=== PATIENT | male | born 2000 ===

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

== ENCOUNTER 2018-01-17 14:52 | Emergency (ER) | payer MEDICAID ==
[2018-01-17 14:52] VITALS: BMI 22.2
[2018-01-17 15:01] VITALS: PULSE 72; RESP 18; TEMP 98.1; O2SAT 99
[2018-01-17 16:09] VITALS: BP 131/74
--- NOTE | 2018-01-17 16:36 | ED PDOC ---
Upper Extremity Pain/Injury Time Seen by Provider: 01/17/18 15:04 Chief Complaint (Nursing): Upper Extremity Problem/Injury Chief Complaint (Provider): Upper Extremity Problem/Injury History Per: Patient History/Exam Limitations: no limitations Onset/Duration Of Symptoms: Days, Persistent Current Symptoms Are (Timing): Still Present Additional Complaint(s): Eddi Lund is a 17 year old male with a past medical history of asthma, who is presenting to the ER with complaints of right hand pain to the fourth and fifth metacarpals, onset in September s/p laceration repair. Patient states that he was treated in this ED in September for a laceration repair, after which he was advised to follow up with a hand specialist. He states that due to insurance, he was unable to follow up with a specialist. Patient adds that he works at [employer] and uses his hands in a repetitive manner, which causes him more pain and a "locking sensation" in his hand. He denies any numbness, weakness, or decrease in range of motion. PMD: Boaz Ware Past Medical History Reviewed: Historical Data, Nursing Documentation, Vital Signs Vital Signs: Last Vital Signs Temp 98.1 F 01/17/18 14:58 Pulse 72 01/17/18 14:58 Resp 18 01/17/18 14:58 BP 131/74 01/17/18 16:08 Pulse Ox 99 01/17/18 14:58 - Medical History PMH: Asthma - Family History Family History: States: Unknown Family Hx - Social History Current smoker - smoking cessation education provided: Yes Drugs: Cannabis - Immunization History Hx Tetanus Toxoid Vaccination: No Hx Influenza Vaccination: No - Home Medications Home Medications: Ambulatory Orders Medication Instructions Recorded Albuterol HFA [Ventolin HFA 90 2 puff IH [id number] PRN 05/27/15 mcg/actuation (8 g)] Ibuprofen 600 mg PO Q6 #20 tab 05/27/15 Ibuprofen [Motrin Tab] 600 mg PO Q6 #20 tab 03/11/17 Cyclobenzaprine [Cyclobenzaprine 10 mg PO TID PRN #20 tab 07/29/17 HCl] Naproxen [Naprosyn] 500 mg PO BID #20 tab 07/29/17 Clindamycin [Cleocin] 300 mg PO TID #21 cap 10/15/17 Ibuprofen [Motrin] 600 mg PO QID PRN #30 tab 10/17/17 Meloxicam [Mobic] 15 mg PO DAILY #30 tab 01/17/18 - Allergies Allergies/Adverse Reactions: Allergies Allergy/AdvReac Type Severity Reaction Status Date / Time Penicillins Allergy RASH Verified 01/17/18 14:58 Review of Systems ROS Statement: Except As Marked, All Systems Reviewed And Found Negative Musculoskeletal: Positive for: Hand Pain. Negative for: Other (decrese in ROM) Neurological: Negative for: Weakness, Numbness Physical Exam - Reviewed Nursing Documentation Reviewed: Yes Vital Signs Reviewed: Yes - Physical Exam Comments: GENERAL APPEARANCE: Patient is awake, alert, oriented x 3, in no acute distress. SKIN: Warm, dry; (-) cyanosis. UPPER EXTREMITY: (+) healed scar in between 4 and fifth MCP, (-) swelling, (-) deformity, (-) tenderness, FROM. Distal sensation and cap refill normal. NEURO AND PSYCH: Mental status as above. - ECG O2 Sat by Pulse Oximetry: 99 (RA) Pulse Ox Interpretation: Normal Medical Decision Making Medical Decision Making: Time: 16:15 Previous medical record were reviewed by provider. Laceration repair in September was done, foreign body to his wounds were noted and addressed appropriately. Hand specialist was contacted at that time and follow up arrangements were made for outpatient follow-up. Patient returned to this ED 2 more times for wound check afterwards. Patient advised to follow up with hand specialist or clinic for further evaluation, and to consider outpt physical therapy to strengthen hand. ED can no longer provide further treatment to patient at this time and patient advised to seek help of a specialist. Scribe Attestation: Documented by Anupama Lynne, acting as a scribe for Hellen Aguirre PA-C. Provider Scribe Attestation: All medical record entries made by the Scribe were at my direction and personally dictated by me. I have reviewed the chart and agree that the record accurately reflects my personal performance of the history, physical exam, medical decision making, and the department course for this patient. I have also personally directed, reviewed, and agree with the discharge instructions and disposition. Disposition - Clinical Impression Clinical Impression: Hand pain - Patient ED Disposition Is Patient to be Admitted: No Counseled Patient/Family Regarding: Diagnosis, Need For Followup - Disposition Referrals: Julien Michelle MD [Staff Provider] - Disposition: Routine/Home Disposition Time: 15:45 Condition: STABLE Additional Instructions: Thank you for letting us take care of you today. You were treated for right hand pain. The emergency medical care you received today was directed at your acute symptoms. If you were prescribed any medication, please fill it and take as directed. Return to the Emergency Department if your symptoms worsen, do not improve, or if you have any other problems. Please call one of the physicians/clinics you have been referred to that are listed on the Patient Visit Information form that is included in your discharge packet. Bring any paperwork you were given at discharge with you along with any medications you are taking to your follow up visit. Our treatment cannot replace ongoing medical care by a primary care provider (PCP) outside of the emergency department. Thank you for allowing the [facility] team to be part of your care today. Prescriptions: Meloxicam [Mobic] 15 mg PO DAILY #30 tab Instructions: Hand Pain (DC) Forms: [employer] Connect (Ukrainian) - PA / RADAR MECHANIC / Resident Statement / has reviewed & agrees with the documentation as recorded.
== END 2018-01-17 16:09 | disposition home or self-care (01) ==
LOC: H.ER 14:52
DX: M79.641 Pain in right hand (principal)

== ENCOUNTER 2018-09-01 13:21 | Emergency (ER) | payer MEDICAID, OTHER ==
[2018-09-01 13:21] VITALS: BMI 22.2
[2018-09-01 13:33] VITALS: BP 128/76; PULSE 58; RESP 18; TEMP 98.3; O2SAT 98
[2018-09-01] MEDS ORDERED: Albuterol-Ipratrop 3 mg / 0.5 (3 ml) UD ONE (14:16)
--- NOTE | 2018-09-01 14:28 | ED PDOC ---
HPI: Influenza Time Seen by Provider: 09/01/18 13:38 Chief Complaint: Cough, Cold, Congestion Chief Complaint (Provider): Congestion History Per: Patient Exam Limitations: no limitations Onset/Duration Of Symptoms: Days (x1 week) Additional complaint(s):: 17 year old male with hx of childhood asthma presents to the ED for evaluation of nasal congestion for one week associated with left ear pain for one day. Patient reports that at onset, he started having nasal congestion / discharge, night sweats, and an intermittent cough (mostly at night) occasionally productive of white phlegm. Yesterday, he notes it began feeling as if his left ear was "getting stabbed." Otherwise denies nausea, vomiting, diarrhea, sore throat, fever, chills, getting a flu shot this season, and taking any medicati ons. PMD: Dr Ware Past Medical History Reviewed: Historical Data, Nursing Documentation, Vital Signs Vital Signs: Last Vital Signs Temp 98.3 F 09/01/18 13:33 Pulse 58 L 09/01/18 13:33 Resp 18 09/01/18 13:33 BP 128/76 09/01/18 13:33 Pulse Ox 98 09/01/18 13:33 - Medical History PMH: Asthma (childhood) - Surgical History Surgical History: No Surg Hx - Family History Family History: States: Unknown Family Hx - Social History Current smoker - smoking cessation education provided: Yes (light) Alcohol: Occasional Drugs: Cannabis - Immunization History Hx Tetanus Toxoid Vaccination: No Hx Influenza Vaccination: No - Home Medications Home Medications: Ambulatory Orders Medication Instructions Recorded RX: Ibuprofen [Motrin Tab] 600 mg PO TID #20 tab 04/11/18 RX: Methocarbamol [Robaxin] 500 mg PO TID #14 tab 04/11/18 Albuterol 0.083% [Albuterol 3 ml IH Q4 PRN 7 Days neb 09/01/18 Sulfate 3 Ml] Azithromycin [Z-Graham] 250 mg PO DAILY 5 Days #6 tab 09/01/18 RX: Ibuprofen [Motrin Tab] 600 mg PO Q6 PRN 7 Days tab 09/01/18 - Allergies Allergies/Adverse Reactions: Allergies Allergy/AdvReac Type Severity Reaction Status Date / Time Penicillins Allergy RASH Verified 04/11/18 15:49 Review of Systems ROS Statement: Except As Marked, All Systems Reviewed And Found Negative Constitutional: Positive for: Sweats (at night). Negative for: Fever, Chills ENT: Positive for: Ear Pain (left), Nose Discharge, Nose Congestion. Negative f or: Throat Pain Gastrointestinal: Negative for: Nausea, Vomiting, Diarrhea Physical Exam - Reviewed Nursing Documentation Reviewed: Yes Vital Signs Reviewed: Yes - Physical Exam Appears: Positive for: No Acute Distress Head Exam: Positive for: ATRAUMATIC, NORMOCEPHALIC Skin: Positive for: Normal Color Eye Exam: Positive for: Normal appearance, EOMI, PERRL ENT: Positive for: TM Is/Are (left: erythematous with effusion; right: non- erythematous, unremarkable), Other (bilateral ear canals: unremarkable, non- erythematous). Negative for: Pharyngeal Erythema, Tonsillar Exudate, Tonsillar Swelling Neck: Positive for: Normal, Painless ROM, Supple Cardiovascular/Chest: Positive for: Regular Rate, Rhythm Respiratory: Positive for: Wheezing (mild intermittent expiratory at lung bases bilaterally, unchanged with coughing). Negative for: Respiratory Distress Lymphatic: Positive for: Normal Exam Medical Decision Making Medical Decision Making: Initial Impression: flu-like symptoms Time: 1401 Initial Plan: --Rapid flu swab --Rapid strep test --Ibuprofen 600mg PO --Duoneb 3ml INH --Throat culture 1520 On reevaluation, lungs are cleared to auscultation bilaterally. Rapid flu and strep both with negative results. Scribe Attestation: Documented by Shena Love, acting as a scribe for Gabi Hebert PA-C. Provider Scribe Attestation: All medical record entries made by the Scribe were at my direction and personally dictated by me. I have reviewed the chart and agree that the record accurately reflects my personal performance of the history, physical exam, medical decision making, and the department course for this patient. I have also personally directed, reviewed, and agree with the discharge instructions and disposition. - ECG O2 Sat by Pulse Oximetry: 98 (RA) Pulse Ox Interpretation: Normal Disposition - Clinical Impression Clinical Impression: Otitis media, URI (upper respiratory infection) - Patient ED Disposition Is Patient to be Admitted: No - Disposition Referrals: Boaz Ware MD [Family Provider] - Disposition: Routine/Home Disposition Time: 15:37 Condition: STABLE Additional Instructions: Take Azithromycin as prescribed for ear infection. You can use Ibuprofen or Tylenol for the discomfort. Use Albuterol nebulizer for the cough. Prescriptions: Albuterol 0.083% [Albuterol Sulfate 3 Ml] 3 ml IH Q4 PRN 7 Days neb PRN Reason: Cough Azithromycin [Z-Graham] 250 mg PO DAILY 5 Days #6 tab RX: Ibuprofen [Motrin Tab] 600 mg PO Q6 PRN 7 Days tab PRN Reason: Pain, Moderate (4-7) Instructions: Ear Infections (Otitis Media) (DC), Viral Upper Respiratory Infection, Adult (DC) Forms: [employer] (Hebrew) Print Language: ROMANIAN
[2018-09-01] MEDS ORDERED: Albuterol-Ipratrop 3 mg / 0.5 (3 ml) UD INH SCH (16:00)
== END 2018-09-01 15:37 | disposition home or self-care (01) ==
LOC: H.ER 13:21
DX: J06.9 Acute upper respiratory infection, unspecified (principal); H66.90 Otitis media, unspecified, unspecified ear